=== PATIENT | female | born 1970 | race Caucasian/White ===

== ENCOUNTER 2016-08-15 07:17 | Day surgery (SDC) | payer BC ==
[2016-08-10 07:40] LABS: BASOPHILS 0.5 %; BASOPHILS ABSOLUTE 0.04 10/3/uL (0.0-0.16); EOSINOPHILS 5.9 %; EOSINOPHILS ABSOLUTE 0.44 10/3/uL (0.0-0.53); HEMATOCRIT 33.4 % (36.0-48.0); HEMOGLOBIN 10.1 g/dL (12.0-16.0); IMMATURE GRANULOCYTES 0.1 %; IMMATURE GRANULOCYTES ABSOLUTE 0.01 10/3/uL (0.0-0.11); LYMPHOCYTES 28.5 %; LYMPHOCYTES ABSOLUTE 2.14 10/3/uL (0.67-4.30); MEAN PLATELET VOLUME 9.3 fL (9.2-13.0); MONOCYTES 11.2 %; MONOCYTES ABSOLUTE 0.84 10/3/uL (0.21-1.20); NEUTROPHILS 53.8 %; NEUTROPHILS ABSOLUTE 4.04 10/3/uL (2.02-8.40); PLATELET COUNT 432 10/3/uL (150-400); RBC DISTRIBUTION WIDTH 15.7 % (12.0-16.0); RED CELL COUNT 4.53 10/6/uL (4.0-5.6); WHITE BLOOD CELLS 7.5 10/3/uL (4.5-10.5)
[2016-08-10 07:42] LABS: MANUAL DIFF NO %; MEAN CORPUS HGB CONC 30.2 g/dL (32.0-36.0); MEAN CORPUSCULAR HEMOGLOB 22.3 pg (26.0-34.0); MEAN CORPUSCULAR VOLUME 73.7 fL (80-100)
[2016-08-10 07:48] LABS: ASCORBIC ACID (UR NOT ORDER) NEG (NEG); BILIRUBIN, URINE NEGATIVE (NEG); KETONE, URINE NEGATIVE (NEG); LEUKOCYTE ESTERASE(NOT OR NEG (NEG); WBC (NOT ORDERED) (RFLEX) 2 (0-5)
[2016-08-10 08:06] LABS: HYPOCHROMIA 1+ (3-10/OIF) (0-2/OIF); MICROCYTES 1+ (5-10/OIF) (0-5/OIF); PLATELET ESTIMATE SLT INC (ADEQUATE); RBC MORPHOLOGY ABN (NORMAL)
--- NOTE | ~2016-08-15 | OP ---
[facility] [place] [address] [place]. [address] NAME: EMELIA WINSLOW : 72 STATUS : [place] [facility] [place] [id number] AGE: 45 ADM/REG DATE : 08/15/16 MR#: [id number] REPORT SERV DATE: 08/15/16 DICTATED BY: DAVIDA JEAN JR. DATE: 08/15/16 REPORT STATUS : Draft TRANSCRIBED BY: MODL DATE: 08/15/16 DATE OF PROCEDURE: PREOPERATIVE DIAGNOSIS: Menorrhagia. POSTOPERATIVE DIAGNOSIS: Menorrhagia. PROCEDURE: D and C, hysteroscopy. ANESTHESIA: General anesthesia. COMPLICATIONS: None. ESTIMATED BLOOD LOSS: 25 mL. URINE OUTPUT: Not measured. IV FLUIDS: 700 mL. SURGEON: Davida Jean M.D. [employer] WIRER: None. DRAINS: None. PACKS: None. SPECIMENS: 1. Endocervical. 2. Endometrial curettings, submitted to pathology for permanent section. FINDINGS: Uterus sounds to 10 cm with thick, fluffy endometrium on hysteroscopy. Normal endocervical canal. PROCEDURE IN FULL: After obtaining informed consent, the patient was taken to the operating room, where general anesthesia was induced without difficulty. Abdomen, genitalia, and perineum were prepped and draped in usual sterile fashion. The anterior lip of the cervix was grasped with a single-tooth tenaculum and the uterus sounded to 12 cm and progressively dilated up to 0-degree hysteroscope, which was inserted and the findings were noted as above. Multiple photos were taken. Endocervical curetting was performed and specimen removed. Endometrial curetting was performed, and a very large amount of specimen was removed. All these were submitted to Pathology for permanent section. Hemostasis was visualized. All instruments were removed, and the patient revived and transferred to the recovery room with vital signs stable. There were no complications. [facility] [place] [id number] [place]. [address] NAME: EMELIA WINSLOW : 72 STATUS : [place] [facility] [place] PAT#: [id number] AGE: 45 ADM/REG DATE : 08/15/16 MR#: [id number] REPORT SERV DATE: 08/15/16 DICTATED BY: DAVIDA JEAN JR. DATE: 08/15/16 REPORT STATUS : Draft TRANSCRIBED BY: KAROL DATE: 08/15/16 DA/ROSIL Davida Jean Jr., M.D. / [id number] CC: Roney Kohler Jr., M.D.
[~2016-08-15 07:17] MED LIST: MOTRIN IB200 MG PO; MULTIPLE VIT PO; PROVENT20 INH; T PO
== END 2016-08-15 18:32 | disposition home or self-care (01) ==
LOC: SDC 07:17
PROVIDERS: Obstetrics & Gynecology
PROC: 0UDB8ZZ Extraction of Endometrium, Via Natural or Artificial Opening Endoscopic (ICD-10-PCS; principal; 2016-08-15 09:00)
DX: N85.00 Endometrial hyperplasia, unspecified (principal); E66.01 Morbid (severe) obesity due to excess calories; Z98.890 Other specified postprocedural states; Z90.49 Acquired absence of other specified parts of digestive tract; Z98.891 History of uterine scar from previous surgery; Z79.899 Other long term (current) drug therapy; Z79.1 Long term (current) use of non-steroidal anti-inflammatories (NSAID)
CPT/HCPCS: 81001; 84703; 85025; 88305; A9270-GY; J2250; J2270; J2405; J3010